=== PATIENT | male | born 1970 | race Caucasian/White ===

== ENCOUNTER 2021-11-17 14:12 | Emergency (ER) | payer MEDICAID ==
[~2021-11-17] VITALS: Ht 175.3 cm; Wt 102.0 kg
[2021-11-17 14:39] VITALS: BP 121/79
[2021-11-17] MEDS ORDERED: normal saline 1000ML IV soln IVB ONE (14:50)
[2021-11-17 15:05] LABS: BASOPHILS # (AUTO) 0.1 X10'3 (0-0.2); BASOPHILS % (AUTO) 1.2 % (0-1); EOSINOPHILS # (AUTO) 0.3 X10'3 (0-0.9); EOSINOPHILS % (AUTO) 3.9 % (0-6); HEMATOCRIT 45.4 % (42.0-52.0); HEMOGLOBIN 15.6 g/dl (14.0-17.9); LYMPHOCYTES # (AUTO) 1.7 X10'3 (1.1-4.8); LYMPHOCYTES % (AUTO) 19.1 % (21-51); MEAN CORPUSCULAR HEMOGLOBIN 32.4 PG (27.0-31.0); MEAN CORPUSCULAR HGB CONC 34.4 g/dL (33.0-36.5); MEAN CORPUSCULAR VOLUME 94.1 FL (78-98); MEAN PLATELET VOLUME 9.8 FL (7.4-10.4); MONOCYTES # (AUTO) 0.6 X10'3 (0-0.9); MONOCYTES % (AUTO) 7.1 % (2-12); NEUTROPHILS % (AUTO) 68.7 % (42-75); PLATELET COUNT 240 X10'3 (140-440); RED BLOOD COUNT 4.83 X10'6 (4.70-6.10); RED CELL DISTRIBUTION WIDTH 14.2 % (11.5-14.5); WHITE BLOOD COUNT 8.7 X10'3 (4.5-11.0)
[2021-11-17 15:16] LABS: D-DIMER 0.43 MG/L FEU (0-0.50)
[2021-11-17 15:19] LABS: ALANINE AMINOTRANSFERASE 80 U/L (12-78); ALBUMIN/GLOBULIN RATIO 1.3 (1.1-1.5); ALKALINE PHOSPHATASE 54 IU/L (46-116); ANION GAP 9 (8-16); ASPARTATE AMINO TRANSFERASE 40 U/L (10-37); BILIRUBIN,TOTAL 0.7 MG/DL (0.1-1.0); BLOOD UREA NITROGEN 26 MG/DL (7-18); CALCIUM 8.7 MG/DL (8.5-10.1); CHLORIDE 102 MMOL/L (99-107); CREATININE 1.63 MG/DL (0.60-1.10); GLUCOSE 108 MG/DL (70-104); POTASSIUM 4.5 MMOL/L (3.5-5.1); SODIUM 138 MMOL/L (135-145); TOTAL CARBON DIOXIDE 27.1 MMOL/L (24-32); TOTAL PROTEIN 7.1 G/DL (6.4-8.2); eGFR 44 ML/MIN
[2021-11-17 15:27] LABS: ETHANOL < 0.010 GM/DL (0.0-0.010)
[2021-11-17 16:39] LABS: URINE AMPHETAMINE SCREEN POSITIVE (Neg); URINE BARBITUATE SCREEN NEGATIVE (Neg); URINE BENZODIAZEPINES SCREEN NEGATIVE (Neg); URINE CANNABINOID SCREEN NEGATIVE (Neg); URINE COCAINE SCREEN NEGATIVE (Neg); URINE METHADONE SCREEN NEGATIVE (Neg); URINE OPIATE SCREEN NEGATIVE (Neg); URINE PHENCYCLIDINE SCREEN NEGATIVE (Neg)
== END 2021-11-17 16:44 | disposition home or self-care (01) ==
LOC: ER 14:13
DX: R55 Syncope and collapse (principal)
CPT/HCPCS: 36415; 71045; 80053; 80305; 80320; 83880; 84484; 85025; 85379; 93005; 96360; 99285; J7030

== ENCOUNTER 2023-08-03 09:18 | Inpatient (IN) | payer MEDICAID ==
[~2023-08-03] VITALS: Ht 172.7 cm; Wt 100.0 kg
[2023-08-03] VITALS (11 sets, daily range): BP systolic 106–129; BP diastolic 62–74; PULSE 65–84; RESP 14–22; TEMP 100.7; O2SAT 92–99
[2023-08-03] MEDS: cefazolin 2gm/D5W 100mL 100 ML IV ONE (05:30)
[2023-08-03] MEDS: albuterol 2.5 MG/3 ML nebule NEB ONE (05:30)
[2023-08-03] MEDS: famotidine 20mg tablet PO ONE (05:30)
[~2023-08-03 09:18] MED LIST: ALBU18HF2 INH; AMLO5TAB16 PO; ATOR20TA66 PO; BREX2TAB PO; DOXA2TAB46 PO; FOLI1TAB27 PO; IPRA3AMP31 NEB; LOSA50TA64 PO; METF-1203 PO; OMEP20CA16 PO; SILD100T70 PO; ringers solution, lacted 1,000 ML IV SCH
[2023-08-03 11:12] LABS: BASOPHILS # (AUTO) 0.1 X10'3 (0-0.2); BASOPHILS % (AUTO) 1.1 % (0-1); EOSINOPHILS # (AUTO) 0.5 X10'3 (0-0.9); LYMPHOCYTES % (AUTO) 27.3 % (21-51); MEAN CORPUSCULAR HEMOGLOBIN 31.8 PG (27.0-31.0); MEAN CORPUSCULAR HGB CONC 33.7 g/dL (33.0-36.5); MEAN CORPUSCULAR VOLUME 94.4 FL (78-98); MEAN PLATELET VOLUME 10.6 FL (7.4-10.4); MONOCYTES # (AUTO) 0.5 X10'3 (0-0.9); MONOCYTES % (AUTO) 6.8 % (2-12); NEUTROPHILS # (AUTO) 4.2 X10'3 (1.8-7.7); NEUTROPHILS % (AUTO) 57.8 % (42-75); PRE OP HEMOGLOBIN 15.2 g/dL (14.0-17.9); PRE OP PLATELET COUNT 215 X10'3 (140-440); PRE OP WHITE BLOOD COUNT 7.2 10'3 (4.8-10.8); RED BLOOD COUNT 4.77 X10'6 (4.70-6.10); RED CELL DISTRIBUTION WIDTH 14.6 % (11.5-14.5)
[2023-08-03 11:24] LABS: ALBUMIN 3.6 G/DL (3.4-5.0); ALBUMIN/GLOBULIN RATIO 1.1 (1.1-1.5); ALKALINE PHOSPHATASE 57 IU/L (46-116); BLOOD UREA NITROGEN 12 MG/DL (7-18); CALCIUM 8.6 MG/DL (8.5-10.1); CHLORIDE 104 MMOL/L (99-107); PRE OP ALT 53 U/L (30-65); PRE OP ANION GAP 12 (8-16); PRE OP AST 37 U/L (10-37); PRE OP BILIRUB, TOTAL 0.4 MG/DL (0.0-1.0); PRE OP GLUCOSE 121 MG/DL (70-104); PRE OP POTASSIUM 4.1 MMOL/L (3.4-5.1); PRE OP SODIUM 140 MMOL/L (135-145); eCRCL 81 ML/MIN; eGFR 78 ML/MIN
[2023-08-03 11:36] LABS: HEMOGLOBIN A1C 5.9 % (4.5-6.2)
[2023-08-03] MEDS ORDERED: midazolam 1 mg/ML 2ml injection ONE (11:50)
[2023-08-03] MEDS ORDERED: fentaNYL/PF 50MCG/1 ML 2ML syringe ONE (11:50)
[2023-08-03 12:22] LABS: LARGE PLATELETS FEW; PLATELET ESTIMATE NORMAL
[2023-08-03] MEDS ORDERED: sevoflurane 250ml liquid IH ONE (12:22)
[2023-08-03] MEDS: diazepam 5mg tablet PO ONE (12:25)
[2023-08-03] MEDS ORDERED: propofol inj 20 ML IV ONE (12:44)
[2023-08-03] MEDS ORDERED: LIDOcaine 2% (20mg/ml) 5ml vial ONE (12:45)
[2023-08-03] MEDS ORDERED: rocuronium 10mg/ml inj IV ONE (12:45)
[2023-08-03] MEDS: BUPIVACAINE liposomal/PF 13.3 MG/ML vial IM ONE (13:21)
[2023-08-03] MEDS ORDERED: meperidine/PF 25mg/ml syringe ONE (13:22)
[2023-08-03] MEDS: BUPIVAcaine 2.5mg/ml inj 50ml vial (contains preservative) ONE (13:22)
[2023-08-03] MEDS: LIDOcaine 1% (10mg/ml)w/preservative inj. 20ml MDV ONE (13:23)
[2023-08-03] MEDS ORDERED: enalaprilat dihydrate 2.5mg/2ml vial IV PRN (13:40)
[2023-08-03] MEDS ORDERED: labetalol 20mg/4ml (5mg/ml) syringe IV PRN (13:40)
[2023-08-03] MEDS ORDERED: ondansetron/PF 4mg/2ml inj IV PRN (13:40)
[2023-08-03] MEDS ORDERED: ringers solution, lacted 1,000 ML IV SCH (13:40)
[2023-08-03] MEDS ORDERED: meperidine/PF 25mg/ml syringe IV PRN ×3 (13:40)
[2023-08-03] MEDS ORDERED: morphine 2 MG/ML inj. syringe IV PRN (13:40)
[2023-08-03] MEDS ORDERED: proCHLORperazine 10 MG/2 ml inj IV PRN (13:40)
[2023-08-03] MEDS ORDERED: morphine 4 MG/ML inj SYRINge IV PRN (13:40)
[2023-08-03] MEDS ORDERED: ketorolac trometh. 30mg/ml inj. ONE ×2 (13:43→13:44)
[2023-08-03] MEDS ORDERED: oxyCODONE/APAP 5-325mg tablet PO PRN (13:50)
== END 2023-08-03 14:00 | disposition home or self-care (01) | DRG 227 ==
LOC: PAS IN 09:30
PROVIDERS: ADMIT Surgery; ATTEND Surgery
PROC: 8E0W4CZ Robotic Assisted Procedure of Trunk Region, Percutaneous Endoscopic Approach (ICD-10-PCS; 2023-08-03)
PROC: 3E0T3BZ Introduction of Anesthetic Agent into Peripheral Nerves and Plexi, Percutaneous Approach (ICD-10-PCS; 2023-08-03)
PROC: 0WUF4JZ Supplement Abdominal Wall with Synthetic Substitute, Percutaneous Endoscopic Approach (ICD-10-PCS; principal; 2023-08-03 12:22)
DX: K43.0 Incisional hernia with obstruction, without gangrene (principal); F19.10 Other psychoactive substance abuse, uncomplicated; F32.A Depression, unspecified; F41.9 Anxiety disorder, unspecified; I10 Essential (primary) hypertension; J44.9 Chronic obstructive pulmonary disease, unspecified
CPT/HCPCS: 36415; 71045; 80053; 83036; 85008; 85025; 87081; 94640; A4215; A4618; C1781; C9290; J0690; J1100; J1885; J2175; J2250; J2405; J2704; J2710; J3010; J3490; J7120